=== PATIENT | female | born 1960 | race Caucasian/White ===

== ENCOUNTER → 2016-07-11 | Outpatient (CLI) | payer BC, OTHER ==
--- NOTE | 2016-07-12 14:21 | MM ---
Reason for exam: screening (asymptomatic). Last mammogram was performed 1 year ago. History: Patient is postmenopausal and is nulliparous. Family history of breast cancer in maternal grandmother at age 40 and breast cancer in maternal cousin at age 40. Cyst aspiration. MG Screening Mammo w CAD Bilateral CC and MLO view(s) were taken. Prior study comparison: July 08, 2015, bilateral MG screening mammo w CAD. July 06, 2014, bilateral MG screening mammo w CAD. The breast tissue is heterogeneously dense. This may lower the sensitivity of mammography. No significant changes when compared with prior studies. ASSESSMENT: Benign, BI-RAD 2 RECOMMENDATION: Routine screening mammogram of both breasts in 1 year.
== END | disposition home or self-care (01) ==
LOC: RADMAMWWP 15:11
PROVIDERS: ATTEND Obstetrics & Gynecology
DX: Z12.31 Encounter for screening mammogram for malignant neoplasm of breast (principal)

== ENCOUNTER → 2017-07-22 | Outpatient (CLI) | payer BC, OTHER ==
--- NOTE | 2017-07-22 14:52 | MM ---
Reason for exam: screening (asymptomatic). Last mammogram was performed 1 year ago. History: Patient is postmenopausal and is nulliparous. Family history of breast cancer in maternal grandmother at age 40 and breast cancer in maternal cousin at age 40. Cyst aspiration. Physical Findings: A clinical breast exam by your physician is recommended on an annual basis and results should be correlated with mammographic findings. MG Screening Mammo w CAD Bilateral CC and MLO view(s) were taken. Prior study comparison: July 11, 2016, bilateral MG screening mammo w CAD. July 08, 2015, bilateral MG screening mammo w CAD. The breast tissue is heterogeneously dense. This may lower the sensitivity of mammography. Finding: There is a 12 mm circumscribed oval mass located 5 cm from the nipple in the upper outer quadrant, middle position of the left breast. New finding since July 11, 2016 and July 08, 2015. ASSESSMENT: Incomplete: need additional imaging evaluation, BI-RAD 0 RECOMMENDATION: Special view mammogram and ultrasound of the left breast. [facility] will attempt to contact patient to return for supplemental views and ultrasound.
== END | disposition home or self-care (01) ==
LOC: RADMAMWWP 09:11
PROVIDERS: ATTEND Obstetrics & Gynecology
DX: Z12.31 Encounter for screening mammogram for malignant neoplasm of breast (principal); Z80.3 Family history of malignant neoplasm of breast
CPT/HCPCS: 77067

== ENCOUNTER → 2017-07-26 | Outpatient (CLI) | payer BC, OTHER ==
--- NOTE | 2017-07-29 11:32 | MM ---
Reason for exam: additional evaluation requested from abnormal screening. Last mammogram was performed less than 1 month ago. History: Patient is postmenopausal and is nulliparous. Family history of breast cancer in maternal grandmother at age 40 and breast cancer in maternal cousin at age 40. Cyst aspiration. Taking estrogen beginning at age 55. Taking progesterone beginning at age 56. Physical Findings: Nurse Summary: 2cm nodule in the left breast at 1 o'clock (nurse [place]). MG Work Up Mamm w CAD LT CC and MLO view(s) were taken of the left breast. Prior study comparison: July 22, 2017, bilateral MG screening mammo w CAD. July 11, 2016, bilateral MG screening mammo w CAD. The breast tissue is heterogeneously dense. This may lower the sensitivity of mammography. Nodularity persists. Ultrasound is recommended. These results were verbally communicated with the patient and result sheet given to the patient on 07/26/17. ASSESSMENT: Incomplete: need additional imaging evaluation, BI-RAD 0 RECOMMENDATION: Ultrasound of the left breast. Manage patient on a clinical basis.
--- NOTE | 2017-07-29 11:34 | USB ---
Reason for exam: additional evaluation requested from abnormal screening. History: Patient is postmenopausal and is nulliparous. Family history of breast cancer in maternal grandmother at age 40 and breast cancer in maternal cousin at age 40. Cyst aspiration. Taking estrogen beginning at age 55. Taking progesterone beginning at age 56. US Breast Workup LT Left breast ultrasound includes all four quadrants, the retroareolar region and axilla. Finding demonstrates a 0.6 x 0.4 x 0.4cm cystic lesion at 2 o'clock and a 0.9 x 1.0 x 1.3cm irregular, solid lesion at 2 o'clock for which a biopsy is recommended. These results were verbally communicated with the patient and result sheet given to the patient on 07/26/17. ASSESSMENT: Suspicious, BI-RAD 4 RECOMMENDATION: Ultrasound core biopsy of the left breast. (2 o'clock) Called Dr. Estrada with mammographic findings and has scheduled an appointment for the patient for 08/08/17 at 9:[address] Durbin. PRELIMINARY REPORT CALLED AND FAXED TO DR. DURBIN ON 07/29/17.
== END | disposition home or self-care (01) ==
LOC: RADMAMWWP 14:54
PROVIDERS: ATTEND Obstetrics & Gynecology
DX: R92.8 Other abnormal and inconclusive findings on diagnostic imaging of breast (principal)
CPT/HCPCS: 77065

== ENCOUNTER → 2017-08-16 | Day surgery (SDC) | payer BC, OTHER ==
[2017-08-16 10:58] VITALS: RESP 12
[2017-08-16 12:02] VITALS: BP 124/85; PULSE 73; TEMP 98.6
--- NOTE | 2017-08-16 16:21 | USB ---
EXAMINATION TYPE: US biopsy breast VAD LT DATE OF EXAM: 08/16/2017 CLINICAL HISTORY: R92.2 Abnormal Mammogram. Abnormal ultrasound TECHNIQUE: Ultrasound guided core biopsy of left breast. COMPARISON: Ultrasound 07/26/2017 left breast FINDINGS: The procedure of ultrasound guided core biopsy was explained to the patient. Benefits, alternatives, and risks were discussed. An informed consent was then obtained. The patient was placed in supine positioning for imaging and for the procedure. The overlying skin was prepped and draped in usual sterile fashion. Lidocaine buffered with bicarbonate was used as anesthetic into the skin and subcutaneous tissue up to area of concern in the left breast. A small skin makayla was made with surgical scalpel. Under ultrasound guidance, a 12-gauge vacuum assisted biopsy gun device was used to obtain 7 core samples. Following this, a biopsy clip was left in lesion. The patient tolerated the procedure well without any immediate complication. Discharge instructions were discussed patient. The patient was kept in the radiology department for short stay after the procedure and then discharged home in stable condition. Postprocedure mammogram was obtained. Coil clip appears appropriately placed IMPRESSION: 1. Successful, uncomplicated ultrasound guided core biopsy of area of concern in the left breast. Recommendations: 1. Recommendations are pending pathology results. Pathology Results: Malignant LEFT BREAST NEEDLE CORE BIOPSIES AT 2:00 POSITION: HIGH GRADE CARCINOMA WITH A MARKED MONONUCLEAR INFLAMMATORY INFILTRATE WITH MEDULLARY FEATURES. SEE CANCER CASE SUMMARY. BREAST PROGNOSTIC STUDIES (ER, AK AND HER2/CLARICE) ARE PENDING AND WILL BE REPORTED SEPARATELY. Recommendation Surgical consult of the left breast. PATRICIA
--- NOTE | 2017-08-20 09:01 | MM ---
Reason for exam: additional evaluation requested from abnormal screening. Last mammogram was performed 1 month ago. History: Patient is postmenopausal and is nulliparous. Family history of breast cancer in maternal grandmother at age 40 and breast cancer in maternal cousin at age 40. Cyst aspiration. Taking estrogen beginning at age 55. Taking progesterone beginning at age 56. MG Diagnostic Mammo LT Wo CAD CC and ML view(s) were taken of the left breast. Prior study comparison: July 26, 2017, left breast MG work up mamm w CAD LT. July 22, 2017, bilateral MG screening mammo w CAD. ASSESSMENT: Post procedure mammogram for marker placement RECOMMENDATION: Ultrasound of the left breast in 6 months. PENDING PATHOLOGY RESULTS.
== END | disposition home or self-care (01) ==
LOC: RADUSWWP 10:30
PROVIDERS: ATTEND Surgery
DX: C50.912 Malignant neoplasm of unspecified site of left female breast (principal); Z80.3 Family history of malignant neoplasm of breast; Z79.890 Hormone replacement therapy
CPT/HCPCS: 88305; 77065; 19083; A4648; J2001

== ENCOUNTER → 2017-08-24 | Outpatient (CLI) | payer BC, OTHER ==
--- NOTE | 2017-08-25 16:03 | BMR ---
EXAMINATION TYPE: MR breast BILAT wo/w con DATE OF EXAM: 08/24/2017 COMPARISON: Bilateral breast mammogram July 22, 2017 BI-RADS 0. Left breast diagnostic mammogram July 26, 2017 BI-RADS 0. Left breast ultrasound July 26, 2017 BI-RADS 4 HISTORY: Malignant neoplasm upper-outer quadrant lt breast on ultrasound guided biopsy 08/16/2017 CONTRAST: Multiplanar, multisequence images of the breasts were acquired utilizing 7 mL intravenous Gadavist ga dolinium contrast. TECHNIQUE: A series of fat and water weighted images in the long and short axis views of both breasts are obtained in conjunction with dynamic contrast MRI with subtraction technique. Three-dimensional and additional postprocessing imaging is created on independent workstation and reviewed during offi cial interpretation of this study. FINDINGS: Heterogeneously dense fibroglandular tissue is redemonstrated bilaterally. There is mild sy mmetric background enhancement. There is artifact from biopsy clip in the left breast superiorly. The re are few scattered simple appearing cysts noted throughout both breasts. No internal mammary adenop athy is present bilaterally. Along the central inferior aspect of the biopsy clip artifact there is persistent spiculated 8 x 8 mm lesion roughly 4.9 cm from the nipple at closer to 12 to 1:00 position in the left breast that likel y corresponds to biopsy-proven malignancy. Slightly prominent but subcentimeter left axillary lymph n ode is seen. No multicentric or additional suspicious lesion in the left breast is clearly identified . Within the right breast there is no pathologic enhancing mass identified. Chest wall is intact. No kwan spicious skin thickening is seen. IMPRESSION: MRI redemonstrates biopsy-proven malignancy. No multicentric disease in the left breast o r additional suspicious lesion in the right breast. BI-RADS 2 benign findings right breast BI-RADS 6 biopsy-proven malignancy left breast Recommendation: Appropriate surgical and oncologic management.
== END | disposition home or self-care (01) ==
LOC: RADMRIMAIN 10:05
PROVIDERS: ATTEND Surgery
DX: C50.412 Malignant neoplasm of upper-outer quadrant of left female breast (principal)
CPT/HCPCS: 77059; 0159T; A9581

== ENCOUNTER 2017-08-27 09:47 | Day surgery (SDC) | payer BC, OTHER ==
[2017-08-26 14:56] VITALS: BMI 25.8
[~2017-08-27 09:47] MED LIST: ALPRAZolam 0.5 MG TAB PO PRN; DEXAMETHASONE SOD PHOSPHATE 10 MG/ML 1 ML VIAL IV ONE; HYDROmorphone 0.5 MG/0.5 ML SYRINGE IVP PRN; LACTATED RINGERS 1,000 ML IV SCH; MORPHINE SULFATE 4 MG/ML SYRINGE IV PRN; ONDANSETRON 4 MG/2 ML VIAL IVP ONE; ONDANSETRON 4 MG/2 ML VIAL IVP PRN; Pre Op ABX Message 1 EACH MISC MISCELLANE ONE
[2017-08-27] MEDS ORDERED: LIDOCAINE 1% INJ 10MG/ML (20 ML MDV) SQ ONE (11:12)
[2017-08-27] MEDS ORDERED: SODIUM BICARB 4% 5 ML VIAL (0.48 MEQ/ML) MISCELLANE ONE (11:12)
--- NOTE | 2017-08-27 12:02 | NM ---
EXAMINATION TYPE: NM sentinel node injection DATE OF EXAM: 08/27/2017 COMPARISON: Mammogram 08/16/2017 HISTORY: Left breast cancer TECHNIQUE AND FINDINGS: The procedure of sentinel lymph node injection was explained to the patient. The benefits, alternatives, and risks were discussed. An informed consent was then obtained. Overlying skin is cleaned with sterile alcohol. Following this, 563 uCi Tc99m Tilmanocept was inject ed upper outer aspect of the left nipple. The patient tolerated the procedure well without any immedi ate complication. The patient was kept in the radiology department for short stay after the procedur e and then taken to surgery for surgical procedure what is presumed intraoperative gamma probe will b e used for sentinel lymph node detection. IMPRESSION: Left breast radiotracer injection for sentinel node localization as above.
[2017-08-27] MEDS ORDERED: fentaNYL (PF) 50 MCG/ML 2 ML AMP ONE (12:38)
[2017-08-27] MEDS ORDERED: LIDOCAINE 1% INJ 10MG/ML (20 ML MDV) ONE (12:38)
[2017-08-27] MEDS ORDERED: PROPOFOL 10 MG/ML 20 ML VIAL IV ONE (12:38)
[2017-08-27] MEDS ORDERED: SUCCINYLCHOLINE CHLORIDE 100 MG/5 ML SYR IV ONE (12:38)
--- NOTE | 2017-08-27 12:44 | P.OP ---
Date of Procedure: 08/27/17 Preoperative Diagnosis: Left breast cancer Postoperative Diagnosis: Left breast cancer Procedure(s) Performed: Left breast lumpectomy with needle localisation, Left axillary Sentinal lymph node biopsy Anesthesia: GETA Estimated Blood Loss (ml): 10 Pathology: other (Left breast mass & left axillary lymph node) Condition: stable Disposition: same day Indications for Procedure: Leftbbreast ca Plan - Discharge Summary New Discharge Prescriptions: New HYDROcodone/APAP 5-325MG [[place] 5-325] 1 tab PO Q4HR PRN 3 Days #18 tab PRN Reason: Pain No Action Sertraline [Zoloft] 50 mg PO QAM [place]-3 Fatty Acids/Fish Oil [Fish Oil 1,000 mg Softgel] 1 tab PO DAILY Multivitamins, Thera [Multivitamin] 1 tab PO DAILY Glucosamine/Chondr Montero A Sod [Osteo Bi-Flex Caplet] 1 tab PO DAILY Ferrous Sulfate [Iron (65 MG Elemental)] 325 mg PO DAILY Cholecalciferol [Vitamin D3] 1,000 unit PO Q7D Calcium Carbonate [Calcium] 600 mg PO DAILY Ascorbic Acid [Vitamin C] 500 mg PO DAILY Discharge Medication List Ascorbic Acid [Vitamin C] 500 mg PO DAILY 10/05/15 [History] Calcium Carbonate [Calcium] 600 mg PO DAILY 10/05/15 [History] Cholecalciferol [Vitamin D3] 1,000 unit PO Q7D 10/05/15 [History] Ferrous Sulfate [Iron (65 MG Elemental)] 325 mg PO DAILY 10/05/15 [History] Glucosamine/Chondr Montero A Sod [Osteo Bi-Flex Caplet] 1 tab PO DAILY 10/05/15 [ History] Multivitamins, Thera [Multivitamin] 1 tab PO DAILY 10/05/15 [History] [place]-3 Fatty Acids/Fish Oil [Fish Oil 1,000 mg Softgel] 1 tab PO DAILY [History] Sertraline [Zoloft] 50 mg PO QAM 10/05/15 [History] HYDROcodone/APAP 5-325MG [[place] 5-325] 1 tab PO Q4HR PRN 3 Days #18 tab [Rx] Follow up Appointment(s)/Referral(s): Lonnie Rai MD [STAFF PHYSICIAN] - 1 Week Patient Instructions/Handouts: *Surgery [facility] - ([facility]) Breast Biopsy Instructions Discharge Disposition: HOME SELF-CARE
[2017-08-27] MEDS ORDERED: ceFAZolin 1,000 MG VIAL IVPB ONE (12:48)
[2017-08-27] MEDS ORDERED: BUPIVACAINE (PF) 0.5% 30 ML VIAL SQ ONE ×3 (12:58→13:44)
[2017-08-27 14:16] VITALS: TEMP 98.9
--- NOTE | 2017-08-27 14:26 | P.OP ---
Date of Procedure: 08/27/17 Preoperative Diagnosis: Carcinoma left breast upper outer quadrant Postoperative Diagnosis: Carcinoma left breast after axillary sentinel lymph node negative for metastases Procedure(s) Performed: Left breast lumpectomy with left axillary sentinel lymph node biopsy Anesthesia: TRAVIS Surgeon: Lonnie Rai Estimated Blood Loss (ml): 20 Pathology: other (Left breast mass and left axillary sentinel lymph node) Condition: stable Disposition: same day Indications for Procedure: The patient is a 56-year-old white female who was found to have a suspicious mass in the upper outer quadrant confirmed by ultrasound to be solid. Core biopsy revealed this to be carcinoma invasive with medullary features MRI was negative for any other lesions in either breast. After extensive discussion patient opted for breast preservation and therefore left breast wide excision with left axillary sentinel lymph node was recommended followed by adjuvant treatment depending on the results of the biopsy and sentinel lymph node. Operative Findings: Left breast mass or about 2 cm in diameter operable excised down to the underlying muscle fascia. Left axillary sentinel lymph node negative for metastases on frozen section Description of Procedure: After induction of general endotracheal anesthesia the entire left chest wall and axilla upper arm and breast were prepped with ChloraPrep the. Prostate axilla for the sentinel lymph node. As was identified with the Jerzy counter where local anesthetic was infiltrated and a transverse incision was made and deepened through the subcutaneous tissue. The sentinel lymph node was identified. It was fairly large over 1 cm in diameter and removed with the attachment being divided between clamps and ligated with 4-0 Vicryl suture ligatures. Section revealed no evidence of metastatic disease. Background count was otherwise negative. The attention was then turned to the breast. Transverse incision was made in the upper outer quadrant at the wire insertion site and wide excision of the breast tissue was accomplished down to the underlying muscle fascia and the mass was then usual fashion for the margins. The were thoroughly irrigated. Hemostasis was good. The bed of the lump was marked with the micro-clips. Closure was achieved with interrupted 4-0 Vicryl for the subcutaneous tissues and 4-0 Monocryl subcuticular suture and Steri-Strips for the skin for both incisions. Pressure dressing was applied. All counts were correct. The patient tolerated the procedure well and was transferred to the recovery room in good and stable condition.
[2017-08-27 14:44] VITALS: RESP 18
--- NOTE | 2017-08-27 15:05 | MM ---
EXAMINATION TYPE: MG pre op needle loc LT, MG surgical specimen LT DATE OF EXAM: 08/27/2017 COMPARISON: Prior mammogram 08/16/2017 CLINICAL HISTORY: Breast cancer TECHNIQUE: Needle localization with wire placement and surgical excision of area of concern in the left breast. FINDINGS: The procedure of needle localization with wire placement and than surgical excision was explained to the patient. Benefits, alternatives, and risks were discussed. An informed consent was then obtained. The overlying skin was prepped and draped in usual sterile fashion. Lidocaine buffered with bicarbonate was used as anesthetic into the skin and subcutaneous tissue up to the level of area of concern. A 9 cm needle was used under mammographic guidance. Subsequent 90 degrees mammogram show the needle to be in satisfactory position relative to the targeted area. At this point, wire was placed and the needle was withdrawn. The wire was fixed to patient's skin. Images were marked for surgeon. The patient tolerated the procedure well without any immediate complication. The patient was kept in the radiology department for short stay after the procedure and then taken to surgery for surgical excision. Mass and biopsy clip and wire are identified in specimen mammogram. The patient was kept in hospital for short stay after the procedure and then discharged home in stable condition. IMPRESSION: Successful, uncomplicated needle localization with wire placement and surgical excision of breast mass with biopsy clip in the left breast, full pathology results to follow. Pathology Results: Malignant A. SENTINEL LYMPH NODE #1, BIOPSY: Lymph node negative for metastasis. CK7 and SHAI immunoperoxidase stains are confirmatory (controls appropriate). B. 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 Invasive carcinoma closely approximates the medial margin (much less than 1mm from the medial margin). See Surgical Pathology Cancer Case Summary and Comment. Recommendation Surgical consult of the left breast. [facility]
[2017-08-27 15:10] VITALS: BP 142/87; PULSE 64
== END 2017-08-27 15:42 | disposition home or self-care (01) ==
LOC: OR 09:47
PROVIDERS: ATTEND Surgery
DX: C50.412 Malignant neoplasm of upper-outer quadrant of left female breast (principal); Z80.3 Family history of malignant neoplasm of breast; F39 Unspecified mood [affective] disorder; Z78.0 Asymptomatic menopausal state; Z79.890 Hormone replacement therapy; Z79.899 Other long term (current) drug therapy; Z87.891 Personal history of nicotine dependence
CPT/HCPCS: 88342; 88331; 88307; 88341; 76098; 19281; 38792; 19301; 38525; A9520; J1100; J2405; J0690; J2001; J3010; J0330; J2704

== ENCOUNTER → 2017-10-03 | Outpatient (CLI) | payer BC, OTHER ==
--- NOTE | 2017-10-03 18:45 | ECHOF ---
Referral Reason:C50.412 Breast CA, Z01.818 Chemo MEASUREMENTS -------- HEIGHT: 167.6 cm WEIGHT: 72.1 kg BP: IVSd: 1.3 cm (0.6 - 1.1) LVIDd: 3.9 cm (3.9 - 5.3) LVPWd: 1.2 cm (0.6 - 1.1) IVSs: 1.5 cm LVIDs: 2.9 cm LVPWs: 1.7 cm RVIDd: 3.5 cm (< 3.3) LAESV Index (A-L): 28.63 ml/m Ao Diam: 2.7 cm (2.0 - 3.7) LA Diam: 3.5 cm (2.7 - 3.8) AV Cusp: 1.8 cm (1.5 - 2.6) EPSS: 0.6 cm MV E Rafa: 0.77 m/s MV DecT: 260 ms MV A Rafa: 0.95 m/s MV E/A Ratio: 0.81 RAP: 5.00 mmHg RVSP: 22.97 mmHg MV EF SLOPE: 88.40 mm/s (70 - 150) MV EXCURSION: 1.59 cm (> 18.000) FINDINGS -------- Sinus rhythm. This was a technically good study. The left ventricular size is normal. There is mild concentric left ventricular hypertrophy. Overa ll left ventricular systolic function is normal with, an EF between 55 - 60 %. The right ventricle is mildly enlarged. Normal LA size by volume 22+/-6 ml/m2. RA appears enlarged. The aortic valve is trileaflet, and appears structurally normal. No aortic stenosis or regurgitation. The mitral valve leaflets are mildly thickened. Mild mitral regurgitation is present. Mild tricuspid regurgitation present. Right ventricular systolic pressure is normal at < 35 mmHg. There is no evidence of pulmonary hypertension. Trace/mild (physiologic) pulmonic regurgitation. The aortic root size is normal. Normal inferior vena cava with normal inspiratory collapse consistent with estimated right atrial pre ssure of 5 mmHg. There is no pericardial effusion. CONCLUSIONS -------- 1. Sinus rhythm. 2. This was a technically good study. 3. The left ventricular size is normal. 4. There is mild concentric left ventricular hypertrophy. 5. Overall left ventricular systolic function is normal with, an EF between 55 - 60 %. 6. The right ventricle is mildly enlarged. 7. Normal LA size by volume 22+/-6 ml/m2. 8. RA appears enlarged. 9. The aortic valve is trileaflet, and appears structurally normal. No aortic stenosis or regurgitati on. 10. The mitral valve leaflets are mildly thickened. 11. Mild mitral regurgitation is present. 12. Mild tricuspid regurgitation present. 13. Right ventricular systolic pressure is normal at < 35 mmHg. 14. There is no evidence of pulmonary hypertension. 15. Trace/mild (physiologic) pulmonic regurgitation. 16. The aortic root size is normal. 17. There is no pericardial effusion. PAPER SUPERVISOR: Jorge Lilly RDCS
== END | disposition home or self-care (01) ==
LOC: RADECHMAIN 13:56
PROVIDERS: ATTEND Internal Medicine Hematology & Oncology
DX: Z01.818 Encounter for other preprocedural examination (principal); I08.1 Rheumatic disorders of both mitral and tricuspid valves; C50.412 Malignant neoplasm of upper-outer quadrant of left female breast
CPT/HCPCS: 93306

== ENCOUNTER → 2017-12-27 | Outpatient (CLI) | payer BC, OTHER ==
--- NOTE | 2017-12-27 13:04 | ECHOF ---
Referral Reason:C50.412 Breast CA / Z01.818 Chemo exposure MEASUREMENTS -------- HEIGHT: 167.6 cm WEIGHT: 76.7 kg BP: IVSd: 1.1 cm (0.6 - 1.1) LVIDd: 4.4 cm (3.9 - 5.3) LVPWd: 1.1 cm (0.6 - 1.1) IVSs: 1.8 cm LVIDs: 2.0 cm LVPWs: 1.6 cm LAESV Index (A-L): 33.08 ml/m Ao Diam: 2.7 cm (2.0 - 3.7) AV Cusp: 2.0 cm (1.5 - 2.6) LA Diam: 3.7 cm (2.7 - 3.8) EPSS: 0.3 cm MV E Rafa: 0.95 m/s MV DecT: 203 ms MV A Rafa: 1.05 m/s MV E/A Ratio: 0.90 RAP: 5.00 mmHg RVSP: 27.18 mmHg MV EF SLOPE: 100.86 mm/s (70 - 150) MV EXCURSION: 1.74 cm (> 18.000) FINDINGS -------- Sinus rhythm. This was a technically good study. The left ventricular size is normal. Left ventricular wall thickness is normal. Overall left vent ricular systolic function is normal with, an EF between 55 - 60 %. The right ventricle is normal in size and function. LA is midly dilated 29-33ml/m2. The right atrium is normal in size. The aortic valve is trileaflet, and appears structurally normal. No aortic stenosis or regurgitation. The mitral valve leaflets are mildly thickened. [id number] mitral regurgitation is present. Mild tricuspid regurgitation present. There is no evidence of pulmonary hypertension. The right v entricular systolic pressure, as measured by Doppler, is 27.18mmHg. There is no pulmonic regurgitation present. The aortic root, ascending aorta and aortic arch are normal. Normal inferior vena cava with normal inspiratory collapse consistent with estimated right atrial pre ssure of 5 mmHg. There is no pericardial effusion. CONCLUSIONS -------- 1. Sinus rhythm. 2. This was a technically good study. 3. The left ventricular size is normal. 4. Left ventricular wall thickness is normal. 5. Overall left ventricular systolic function is normal with, an EF between 55 - 60 %. 6. LA is midly dilated 29-33ml/m2. 7. The aortic valve is trileaflet, and appears structurally normal. No aortic stenosis or regurgitati on. 8. The mitral valve leaflets are mildly thickened. 9. [id number] mitral regurgitation is present. 10. Mild tricuspid regurgitation present. 11. There is no evidence of pulmonary hypertension. 12. There is no pulmonic regurgitation present. 13. The aortic root, ascending aorta and aortic arch are normal. 14. Normal inferior vena cava with normal inspiratory collapse consistent with estimated right atrial pressure of 5 mmHg. 15. There is no pericardial effusion. STATEMENT CLERKS SUPERVISOR: ARNAV Epstein
== END ==
LOC: RADECHMAIN 11:28
PROVIDERS: ATTEND Internal Medicine Hematology & Oncology
DX: Z01.818 Encounter for other preprocedural examination (principal); C50.412 Malignant neoplasm of upper-outer quadrant of left female breast; I08.1 Rheumatic disorders of both mitral and tricuspid valves
CPT/HCPCS: 93306

== ENCOUNTER → 2018-04-25 | Outpatient (CLI) | payer BC, OTHER ==
--- NOTE | 2018-04-26 16:46 | ECHOF ---
Referral Reason:C50.412 BREAST CA Z01.818 MEASUREMENTS -------- HEIGHT: 165.1 cm WEIGHT: 78.9 kg BP: RVIDd: 3.3 cm (< 3.3) IVSd: 1.0 cm (0.6 - 1.1) LVIDd: 4.0 cm (3.9 - 5.3) LVPWd: 1.3 cm (0.6 - 1.1) IVSs: 1.8 cm LVIDs: 2.0 cm LVPWs: 1.6 cm Ao Diam: 2.3 cm (2.0 - 3.7) AV Cusp: 2.0 cm (1.5 - 2.6) LA Diam: 3.3 cm (2.7 - 3.8) MV EXCURSION: 19.783 mm (> 18.000) MV EF SLOPE: 127 mm/s (70 - 150) EPSS: 0.5 cm MV E Rafa: 0.72 m/s MV DecT: 269 ms MV A Rafa: 0.77 m/s MV E/A Ratio: 0.94 RAP: 5.00 mmHg RVSP: 27.53 mmHg FINDINGS -------- Sinus rhythm. This was a technically good study. The left ventricular size is normal. There is borderline concentric left ventricular hypertrophy. Overall left ventricular systolic function is normal with, an EF between 55 - 60 %. The right ventricle is normal in size. The left atrium is normal in size. The right atrium is normal in size and function. The aortic valve is trileaflet, and appears structurally normal. No aortic stenosis or regurgitation. The mitral valve leaflets are mildly thickened. Mild mitral regurgitation is present. Mild tricuspid regurgitation present. There is no evidence of pulmonary hypertension. The right v entricular systolic pressure, as measured by Doppler, is 27.53mmHg. There is no pulmonic regurgitation present. The aortic root size is normal. There is no pericardial effusion. CONCLUSIONS -------- 1. Sinus rhythm. 2. This was a technically good study. 3. The left ventricular size is normal. 4. There is borderline concentric left ventricular hypertrophy. 5. Overall left ventricular systolic function is normal with, an EF between 55 - 60 %. 6. The left atrium is normal in size. 7. The aortic valve is trileaflet, and appears structurally normal. No aortic stenosis or regurgitati on. 8. The mitral valve leaflets are mildly thickened. 9. Mild mitral regurgitation is present. 10. Mild tricuspid regurgitation present. 11. There is no evidence of pulmonary hypertension. 12. There is no pulmonic regurgitation present. 13. The aortic root size is normal. 14. There is no pericardial effusion. GLASS PULVERIZER EQUIPMENT OPERATOR: Chaparrita Meyers RDCS
--- NOTE | 2018-04-28 12:58 | BD ---
EXAMINATION TYPE: Axial Bone Density DATE OF EXAM: 04/25/2018 COMPARISON: 03/27/2011 CLINICAL HISTORY: History of breast cancer. Height: 65 IN Weight: 173 LBS RISK FACTORS HISTORY OF: Family History of Osteoporosis: YES MOTHER AND (M) GRANDMOTHER Active: YES Diet low in dairy products/other sources of calcium: YES Postmenopausal woman: AGE 50 Take estrogen and/or progesterone medications: NOT NOW How long: AUGUST 2016 - AUGUST 2017 MEDICATIONS: Additional Medications: CALCIUM, VIT D, ZOLOFT, LETROZOLE, ESTRADIOL VAG CREAM 2 TIMES PER WEEK, WOME N'S VIT, VIT C, VIT B12, FISH OIL, IRON, APPLE PECTIN, OSTEO BI FLEX, GLUCO/ CHOND, Additional History: BREAST CANCER WITH CHEMO AND RADIATION 2017 EXAM MEASUREMENTS: Bone mineral densitometry was performed using the [employer] System. Bone mineral density as measured about the Lumbar spine is: ----- L1-L4(G/cm2): 1.212 T Score Values are as follows: ----- L2: -0.2 ----- L3: 1.1 ----- L4: 0.3 ----- L1-L4: 0.3 Bone mineral density has: Decreased -4.4% since study of: 03/27/2011 Bone mineral density about the R hip (g/cm2): 0.980 Bone mineral density about the L hip (g/cm2): 0.899 T Score values are as follows: -----R Neck: -0.4 -----L Neck: -1.0 -----R Total: -0.4 -----L Total: -0.7 Bone mineral density has: Decreased -3.4% since study of: 03/27/2011 IMPRESSION: Normal (Values between +1 and -1 indicate normal bone mass) range on current study. Consider repeati ng this study in 5 years or sooner if there is some new clinical indication. NOTE: T-SCORE=SD OF THE YOUNG ADULT MEAN.
== END | disposition home or self-care (01) ==
LOC: RADBDWWP 14:09
PROVIDERS: ATTEND Internal Medicine Hematology & Oncology
DX: Z01.818 Encounter for other preprocedural examination (principal); C50.412 Malignant neoplasm of upper-outer quadrant of left female breast; I08.1 Rheumatic disorders of both mitral and tricuspid valves; N95.1 Menopausal and female climacteric states; Z79.890 Hormone replacement therapy
CPT/HCPCS: 77080; 93306

== ENCOUNTER → 2018-07-25 | Outpatient (CLI) | payer BC, OTHER ==
--- NOTE | 2018-07-25 13:07 | ECHOF ---
Referral Reason:C50.Chris Z01.818 chemo exposure MEASUREMENTS -------- HEIGHT: 170.2 cm WEIGHT: 74.4 kg BP: IVSd: 1.1 cm (0.6 - 1.1) LVIDd: 4.5 cm (3.9 - 5.3) LVPWd: 1.3 cm (0.6 - 1.1) IVSs: 1.5 cm LVIDs: 3.0 cm LVPWs: 1.6 cm LA Diam: 4.1 cm (2.7 - 3.8) LAESV Index (A-L): 28.65 ml/m Ao Diam: 2.7 cm (2.0 - 3.7) AV Cusp: 2.0 cm (1.5 - 2.6) LA Diam: 4.5 cm (2.7 - 3.8) MV EXCURSION: 17.701 mm (> 18.000) MV EF SLOPE: 88 mm/s (70 - 150) EPSS: 0.6 cm MV E Rafa: 0.63 m/s MV DecT: 171 ms MV A Rafa: 0.66 m/s MV E/A Ratio: 0.96 RAP: 5.00 mmHg RVSP: 23.47 mmHg FINDINGS -------- Sinus rhythm. This was a technically good study. LV size, wall thickness and systolic function are normal, with an EF greater than 55%. The left royce tricular size is normal. The right ventricle is normal in size. The left atrial size is normal. Normal LA size by volume 22+/-6 ml/m2. The right atrial size is normal. Interatrial and interventricular septum intact. There is mild aortic valve sclerosis. There is no evidence of aortic regurgitation. Mild mitral annular calcification present. Mild mitral regurgitation is present. Mild tricuspid regurgitation present. There is no evidence of pulmonary hypertension. The right v entricular systolic pressure, as measured by Doppler, is 23.47mmHg. There is no pulmonic regurgitation present. The aortic root size is normal. Normal inferior vena cava with normal inspiratory collapse consistent with estimated right atrial pre ssure of 5 mmHg. There is no pericardial effusion. CONCLUSIONS -------- 1. LV size, wall thickness and systolic function are normal, with an EF greater than 55%. 2. The left ventricular size is normal. 3. The right ventricle is normal in size. 4. The left atrial size is normal. 5. Normal LA size by volume 22+/-6 ml/m2. 6. The right atrial size is normal. 7. Interatrial and interventricular septum intact. 8. There is mild aortic valve sclerosis. 9. Mild mitral annular calcification present. 10. Mild mitral regurgitation is present. 11. There is no evidence of pulmonary hypertension. 12. The right ventricular systolic pressure, as measured by Doppler, is 23.47mmHg. 13. There is no pulmonic regurgitation present. 14. The aortic root size is normal. 15. Normal inferior vena cava with normal inspiratory collapse consistent with estimated right atrial pressure of 5 mmHg. 16. There is no pericardial effusion. EMERGENCY MEDICAL TECHNICIAN: Lavern Mcintyre RDCS
== END | disposition home or self-care (01) ==
LOC: RADECHMAIN 08:29
PROVIDERS: ATTEND Internal Medicine Hematology & Oncology
DX: I35.8 Other nonrheumatic aortic valve disorders (principal); C50.412 Malignant neoplasm of upper-outer quadrant of left female breast
CPT/HCPCS: 93306

== ENCOUNTER → 2018-08-25 | Outpatient (CLI) | payer BC, OTHER ==
--- NOTE | 2018-08-26 11:37 | MM ---
Reason for exam: additional evaluation requested from prior study. Last mammogram was performed 1 year ago. History: Patient is postmenopausal, has history of breast cancer at age 56, and is nulliparous. Family history of breast cancer in maternal grandmother at age 40 and breast cancer in maternal cousin at age 40. Malignant MG pre op needle loc LT of the left breast, August 27, 2017. Malignant US biopsy breast VAD LT of the left breast, August 16, 2017. Cyst aspiration. Lumpectomy of the left breast. Chemotherapy. Radiation therapy. Taking estrogen beginning at age 55. Taking progesterone beginning at age 56. Taking antineoplastic beginning at age 56. Physical Findings: Nurse did not find any significant physical abnormalities on exam. MG Diagnostic Mammo w CAD ABBY Bilateral CC and MLO view(s) were taken. LM and spot compression CC view(s) were taken of the left breast. Prior study comparison: August 16, 2017, left breast MG diagnostic mammo LT wo CAD. July 26, 2017, left breast MG work up mamm w CAD LT. The breast tissue is heterogeneously dense. This may lower the sensitivity of mammography. Post surgical change on the left. No suspicious abnormality on the left. Left middle depth asymmetry lateral breast improves on spot compression, precautionary upper outer quadrant ultrasound will be performed. Mediport noted. These results were verbally communicated with the patient and result sheet given to the patient on 08/25/18. ASSESSMENT: Incomplete: need additional imaging evaluation, BI-RAD 0 RECOMMENDATION: Ultrasound of the left breast. (upper outer quadrant, attention 3cm from the nipple)
--- NOTE | 2018-08-26 11:38 | USB ---
Reason for exam: additional evaluation requested from abnormal screening. History: Patient is postmenopausal, has history of breast cancer at age 56, and is nulliparous. Family history of breast cancer in maternal grandmother at age 40 and breast cancer in maternal cousin at age 40. Malignant MG pre op needle loc LT of the left breast, August 27, 2017. Malignant US biopsy breast VAD LT of the left breast, August 16, 2017. Cyst aspiration. Lumpectomy of the left breast. Chemotherapy. Radiation therapy. Taking estrogen beginning at age 55. Taking progesterone beginning at age 56. Taking antineoplastic beginning at age 56. US Breast Limited LT Left limited breast ultrasound including focal area of concern, retroareolar and axilla demonstrates a 2.1 x 0.9 x 2.4cm oval, mixed lesion at 2 o'clock correlates with mammographic finding. These results were verbally communicated with the patient and result sheet given to the patient on 08/25/18. ASSESSMENT: Suspicious, BI-RAD 4 RECOMMENDATION: Ultrasound core biopsy of the left breast. Called with mammographic findings and has scheduled an appointment for the patient for 08/27/18 at 10:[address] Brambila. PRELIMINARY REPORT CALLED AND FAXED TO DR. BRAMBILA ON 08/26/18.
== END | disposition home or self-care (01) ==
LOC: RADMAMWWP 08:48
PROVIDERS: ATTEND Radiology Diagnostic Radiology
DX: R92.8 Other abnormal and inconclusive findings on diagnostic imaging of breast (principal)
CPT/HCPCS: 77066

== ENCOUNTER → 2018-10-28 | Outpatient (CLI) | payer BC, OTHER ==
--- NOTE | 2018-10-29 09:54 | ECHOF ---
Referral Reason:C50.412 Breast cancer,Z01.818 Chemo MEASUREMENTS -------- HEIGHT: 167.6 cm WEIGHT: 73.0 kg BP: RVIDd: 3.5 cm (< 3.3) IVSd: 1.1 cm (0.6 - 1.1) LVIDd: 4.3 cm (3.9 - 5.3) LVPWd: 1.3 cm (0.6 - 1.1) IVSs: 1.3 cm LVIDs: 2.9 cm LVPWs: 1.8 cm LAESV Index (A-L): 37.74 ml/m Ao Diam: 2.7 cm (2.0 - 3.7) AV Cusp: 1.7 cm (1.5 - 2.6) LA Diam: 3.5 cm (2.7 - 3.8) EPSS: 0.6 cm MV E Rafa: 0.63 m/s MV DecT: 217 ms MV A Rafa: 0.98 m/s MV E/A Ratio: 0.65 RAP: 5.00 mmHg RVSP: 27.67 mmHg MV EF SLOPE: 86.20 mm/s (70 - 150) MV EXCURSION: 1.15 cm (> 18.000) FINDINGS -------- Sinus rhythm. This was a technically adequate study. The left ventricular size is normal. There is mild concentric left ventricular hypertrophy. Overa ll left ventricular systolic function is normal with, an EF between 55 - 60 %. The diastolic fillin g pattern is normal for the age of the patient. The right ventricle is mildly enlarged. Left atrium is moderately dilated by volume. The right atrial size is normal. Interatrial and interventricular septum intact. The aortic valve is trileaflet and appears structurally normal. There is no evidence of aortic regu rgitation. There is no evidence of aortic stenosis. Cnhz-kc-ytzijerw mitral regurgitation is present. Mild tricuspid regurgitation present. There is no evidence of pulmonary hypertension. The right v entricular systolic pressure, as measured by Doppler, is 27.67mmHg. Trace/mild (physiologic) pulmonic regurgitation. The aortic root size is normal. The inferior vena cava was not well visualized. There is no pericardial effusion. CONCLUSIONS -------- 1. Sinus rhythm. 2. This was a technically adequate study. 3. The left ventricular size is normal. 4. There is mild concentric left ventricular hypertrophy. 5. Overall left ventricular systolic function is normal with, an EF between 55 - 60 %. 6. The diastolic filling pattern is normal for the age of the patient. 7. The right ventricle is mildly enlarged. 8. Left atrium is moderately dilated by volume. 9. The right atrial size is normal. 10. Interatrial and interventricular septum intact. 11. The aortic valve is trileaflet and appears structurally normal. 12. There is no evidence of aortic regurgitation. 13. There is no evidence of aortic stenosis. 14. Nkjo-gn-dhwpziak mitral regurgitation is present. 15. Mild tricuspid regurgitation present. 16. There is no evidence of pulmonary hypertension. 17. The right ventricular systolic pressure, as measured by Doppler, is 27.67mmHg. 18. Trace/mild (physiologic) pulmonic regurgitation. 19. The aortic root size is normal. 20. The inferior vena cava was not well visualized. 21. There is no pericardial effusion. STAFF [employer] OFFICER: Jacquelyn An RDCS
== END | disposition home or self-care (01) ==
LOC: RADECHMAIN 08:29
PROVIDERS: ATTEND Internal Medicine Hematology & Oncology
DX: Z01.818 Encounter for other preprocedural examination (principal); I08.1 Rheumatic disorders of both mitral and tricuspid valves; C50.412 Malignant neoplasm of upper-outer quadrant of left female breast
CPT/HCPCS: 93306

== ENCOUNTER → 2019-02-04 | Day surgery (SDC) | payer BC, OTHER ==
[2019-02-02 12:07] VITALS: BMI 26.6
[~2019-02-04] MED LIST changes: -ALPRAZolam 0.5 MG TAB PO PRN; +ATROPINE OPHTH SOLN 1% 5ML BTL RIGHT EYE ONE; +BALANCED SALT IRRIG SOLN COMB2 15 ML IRRIG.SOLN IRRIGATION ONE; -DEXAMETHASONE SOD PHOSPHATE 10 MG/ML 1 ML VIAL IV ONE; +EPINEPHrine (PF) 0.3 ML in BALANCED SALT IRRIG SOLN COMB2 500 ML IRRIGATION ONE; +HYALURONATE SODIUM INTRAOCULAR 1 EACH SYRINGE (12MG/ML) INTRAOCULA ONE; -HYDROmorphone 0.5 MG/0.5 ML SYRINGE IVP PRN; +LIDOCAINE 1% (PF) 10MG/ML VIAL MISCELLANE ONE; +LIDOCAINE 1% 20 ML VIAL (10MG/ML) FOR IV START INTRADERMA PRN; +MIDAZOLAM 2 MG/2 ML VIAL ONE; -MORPHINE SULFATE 4 MG/ML SYRINGE IV PRN; +MOXIFLOXACIN HCL 0.5% DROPS 3 ML BTL OP ONE; -ONDANSETRON 4 MG/2 ML VIAL IVP ONE; -ONDANSETRON 4 MG/2 ML VIAL IVP PRN; -Pre Op ABX Message 1 EACH MISC MISCELLANE ONE; +TETRACAINE 0.5% OPHTH (PF) DROPS 4 ML BTL OP NR; +TIMOLOL 0.5% OPHTH DROPS 5 ML BTL OP ONE; +fentaNYL (PF) 50 MCG/ML 2 ML AMP ONE
[2019-02-04] MEDS: CYCLOPENTOLATE 1% OPHTH SOLN 2 ML BTL OP NR ×3 (07:42→07:54)
[2019-02-04 07:44] VITALS: TEMP 97.5
[2019-02-04] MEDS: PHENYLEPHRINE 2.5% OPHTH DRP 2ML OP NR ×3 (07:45→07:57)
--- NOTE | 2019-02-04 09:26 | P.OP ---
Date of Procedure: 02/04/19 Preoperative Diagnosis: presbyopia Postoperative Diagnosis: same Procedure(s) Performed: PreLex ( presbyopic lens exchange Implants: BL1UT 22.50 x 2.75 Anesthesia: MAC Surgeon: Orlando Larsen Estimated Blood Loss (ml): 0 Pathology: none sent Condition: stable Disposition: same day Indications for Procedure: refractive error Operative Findings: No complications
[2019-02-04 09:30] VITALS: RESP 17
[2019-02-04 09:45] VITALS: BP 110/60; PULSE 70
--- NOTE | 2019-02-04 23:55 | OP ---
OPERATIVE REPORT DATE OF SURGERY: 02/04/2019. PROCEDURE: Presbyopic lens exchange of the right eye. PREOPERATIVE DIAGNOSIS: Presbyopia. POSTOPERATIVE DIAGNOSIS: Presbyopia. SURGEON: Dr. Orlando Larsen. ANESTHESIA: Topical. ESTIMATED BLOOD LOSS: None. SPECIMEN TAKEN: None. NARRATIVE: After obtaining the appropriate consent, the patient was brought to the operating room. There she was placed under cardiac monitoring, prepped and draped in the usual sterile manner. She was approached from her right temporal side. Using previously acquired corneal topography information, the axis of 98 degrees was identified and marked on the patient's eye. At the center of the cornea, a 5.5 mm Gerald ring inked in gentian krishna was also placed on the eye. At the 11 o'clock position an MVR blade was used to create a paracentesis port. Through this opening, 1% xylocaine MPF 50:50 mix of balanced-salt solution was injected into the anterior chamber. This was followed by stabilization of the anterior chamber with Amvisc. At the 9 o'clock position, a 2.5 mm keratome was used to create a self-sealing corneal flap incision in a Langerman's fashion. Through this opening a cystotome was used to begin a continuous tear capsulorrhexis which was completed using the Utrata forceps. Care was taken to ensure the size of the rhexis was at least the size of the 5.5 mm saúl on the patient's cornea. Hydrodissection and hydrodelineation of the lens was accomplished with balanced-salt solution. Phacoemulsification lens utilizing phaco chop was accomplished in 9.97 seconds at 12% power. Additional xylocaine MPF was instilled into the anterior chamber. This was followed by removal of the remaining cortex under irrigation and aspiration along with careful polishing of the posterior capsule in the capsule vacuum mode. Additional Viscoat was placed into the patient's eye, and using Chapo- Amy capsule polishers, the underside of the anterior capsule and as far to the equator as possible were scuffed, removing any remaining cortical material from those areas. The temporal incision was enlarged slightly with the keratome, and a [employer] Trulign Toric model BL1UT 22.5-diopter by 2.75 cylinder intraocular lens was then placed into the capsular bag without difficulty. The lens was rotated at least 270 degrees once ensuring that it was properly placed within the capsular bag, and the remaining viscoelastic was then removed from within and around the intraocular lens as well as the anterior chamber. One final step was to align the index mari of the intraocular lens with those placed on the patient's cornea earlier in the surgery. The eye was brought to normal intraocular pressure through the paracentesis port, and to ensure watertight integrity ReSure was used on both the paracentesis as well as the temporal incision. The patient then received 2 drops of 0.5% timolol followed by moxifloxacin as well as 1% atropine. She was then lightly patched and shielded in the usual manner. There were no complications from the procedure. She tolerated the procedure well and was returned to Outpatient Recovery in good condition. NYDIA / DAVE: [id number] / MTDKinga
== END | disposition home or self-care (01) ==
LOC: OR 07:21
PROVIDERS: ATTEND Ophthalmology
DX: H52.4 Presbyopia (principal); H04.123 Dry eye syndrome of bilateral lacrimal glands; H00.026 Hordeolum internum left eye, unspecified eyelid; H26.9 Unspecified cataract; H52.13 Myopia, bilateral; C50.912 Malignant neoplasm of unspecified site of left female breast; Z92.21 Personal history of antineoplastic chemotherapy; Z87.891 Personal history of nicotine dependence; Z79.811 Long term (current) use of aromatase inhibitors; Z79.3 Long term (current) use of hormonal contraceptives; Z79.899 Other long term (current) drug therapy
CPT/HCPCS: 66986; V2787; C1780; J2250; J0171; J3010; J2001

== ENCOUNTER → 2019-03-04 | Day surgery (SDC) | payer BC, OTHER ==
[2019-03-02 16:25] VITALS: BMI 26.6
[~2019-03-04] MED LIST changes: +ATROPINE OPHTH SOLN 1% 5ML BTL OPHTHALMIC ONE; -ATROPINE OPHTH SOLN 1% 5ML BTL RIGHT EYE ONE; -LIDOCAINE 1% (PF) 10MG/ML VIAL MISCELLANE ONE; +LIDOCAINE 1% (PF) 10MG/ML VIAL SQ ONE; -TETRACAINE 0.5% OPHTH (PF) DROPS 4 ML BTL OP NR; +TETRACAINE 0.5% OPHTH (PF) DROPS 4 ML BTL OP SCH
[2019-03-04 08:46] VITALS: RESP 16; TEMP 97.9
[2019-03-04] MEDS: CYCLOPENTOLATE 1% OPHTH SOLN 2 ML BTL OP SCH ×3 (08:52→09:05)
[2019-03-04] MEDS: PHENYLEPHRINE 2.5% OPHTH DRP 2ML OP SCH ×3 (08:56→09:08)
--- NOTE | 2019-03-04 10:27 | P.OP ---
Date of Procedure: 03/04/19 Preoperative Diagnosis: Presbyopia Postoperative Diagnosis: same Procedure(s) Performed: PIOL, OS Implants: BL1UT 22.00 x 2.00 Anesthesia: MAC Surgeon: Orlando Larsen Pathology: none sent Condition: stable Indications for Procedure: reading problems Operative Findings: No complications
[2019-03-04 10:53] VITALS: BP 111/74; PULSE 57
--- NOTE | 2019-03-04 20:15 | OP ---
OPERATIVE REPORT DATE OF SURGERY: 03/04/2019. PROCEDURE: PRELEX presbyopic lens exchange of the left eye. PREOPERATIVE DIAGNOSES: Myopia, astigmatism and presbyopia. POSTOPERATIVE DIAGNOSES: Myopia, astigmatism, zonulysis and presbyopia. SURGEON: Dr. Orlando Larsen. ANESTHESIA: Topical. ESTIMATED BLOOD LOSS: None. SPECIMEN TAKEN: None. NARRATIVE: After signing the consent, the patient was brought to the operating room. There she was asked to sit upright, and the axes of 0 and 180 degrees were identified and marked with a gentian krishna marker. She was then placed in the proper supine position under cardiac monitoring, then prepped and draped in the usual sterile manner. She was approached from her left temporal side using previously acquired corneal topography information. An axis of 102 degrees was identified and marked with a corneal axis marker. A 5.5 mm Gerald ring inked in gentian krishna was also placed centrally over the patient's cornea. At the 5 o'clock position an MVR blade was used to create a paracentesis port. Through this opening 1% Xylocaine MPF 50:50 mix with balanced salt solution was injected into the anterior chamber. This was followed by stabilization of the anterior chamber with Amvisc. At the 3 o'clock position a 2.75 mm fannie keratome was used to create a self-sealing corneal flap incision in a Langerman's fashion. Through this opening, a cystotome was introduced to begin a continuous tear capsulorrhexis which was completed with the Utrata forceps. Care was taken to ensure that the size of the rhexis was at least the size of the saúl on the patient's anterior cornea. Hydrodissection and hydrodelineation of the lens was accomplished with balanced salt solution. Phacoemulsification of the lens was accomplished in 1.2 seconds at 4% power. Additional Xylocaine MPF was instilled into the anterior chamber. This was followed by removal of the remaining cortex under irrigation aspiration along with careful polishing of the posterior capsule in the capsule vacuum mode. Additional polishing was accomplished with the Amy and Chapo capsule polishers. During the course of this procedure, it was identified that between the clock hours of 9 and 11 o'clock there appeared to be some flaccidity in the capsular bag. Therefore additional viscoelastic was then placed in the patient's eye and an Opthtec capsular tension ring of 13 mm was inserted into the equator of the capsular bag without difficulty. The external incision was then enlarged slightly with the fannie keratome, and a Bausch [employer] Lomb Trulign model BL1UT 22.0 spherical equivalent 2.00 cylinder was placed into the patient's eye without difficulty. The remaining viscoelastic was removed from in and around the intraocular lens. This was followed by final alignment of the intraocular lens with both Sinskey as well as irrigation aspiration instrument to align with the previously placed astigmatism mari at 102 degrees. The eye was then brought to normal intraocular pressure through the paracentesis port. The wounds were dried with a Weck- Sandra sponge and ReSure was used to seal both the temporal as well as the paracentesis wounds. She then received two drops of 0.5% Timolol followed by two drops of 1% atropine as well as two drops of moxifloxacin. She was then lightly patched and shielded in the usual manner. There were no complications during the course of the procedure. She tolerated the procedure well and was returned to Recovery in good condition. MMRACHAEL / DAVE: [id number] / PATRICIA
== END ==
LOC: OR 07:56
PROVIDERS: ATTEND Ophthalmology
DX: H52.4 Presbyopia (principal); H52.13 Myopia, bilateral; H00.026 Hordeolum internum left eye, unspecified eyelid; H04.123 Dry eye syndrome of bilateral lacrimal glands; H52.209 Unspecified astigmatism, unspecified eye; Z96.1 Presence of intraocular lens; F32.9 Major depressive disorder, single episode, unspecified; C50.912 Malignant neoplasm of unspecified site of left female breast; Z92.21 Personal history of antineoplastic chemotherapy; Z79.3 Long term (current) use of hormonal contraceptives; Z79.899 Other long term (current) drug therapy; Z87.891 Personal history of nicotine dependence; Z97.3 Presence of spectacles and contact lenses; Z80.9 Family history of malignant neoplasm, unspecified; Z83.52 Family history of ear disorders; Z92.3 Personal history of irradiation
CPT/HCPCS: 66986; L8610; V2632; V2788; J2250; J0171; J3010; J2001

== ENCOUNTER → 2020-05-11 | Outpatient (CLI) | payer BC, OTHER ==
--- NOTE | 2020-05-11 15:46 | BD ---
EXAMINATION TYPE: Axial Bone Density DATE OF EXAM: 05/11/2020 COMPARISON: 04/25/2018 CLINICAL HISTORY: Height: 64.5 IN Weight: 168 LBS RISK FACTORS HISTORY OF: Family History of Osteoporosis: YES MOTHER, GRANDMOTHER(P) Active: YES Postmenopausal woman: AGE 51 Take estrogen and/or progesterone medications: YES How long: ESTRADIAL CREAM FOR 5 YEARS MEDICATIONS: Additional Medications: CALCIUM, VIT D, LETROZOLE, ESTRADIAL CREAM, ZOLOFT, IRON, MULTI VIT, GLUCOSAM INE CHONDROITIN, FISH OIL, VIT C Additional History: BREAST CANCER WITH CHEMO AND RADIATION EXAM MEASUREMENTS: Bone mineral densitometry was performed using the [employer] System. Bone mineral density as measured about the Lumbar spine is: ----- L1-L4(G/cm2): 1.148 T Score Values are as follows: ----- L2: -0.3 ----- L3: 0.5 ----- L4: -0.5 ----- L1-L4: -0.3 Bone mineral density has: Decreased -5.1% since study of: 04/25/2018 Bone mineral density about the R hip (g/cm2): 0.883 Bone mineral density about the L hip (g/cm2): 0.868 T Score values are as follows: -----R Neck: -1.1 -----L Neck: -1.2 -----R Total: -1.0 -----L Total: -1.3 Bone mineral density has: Decreased -7.7% since study of: 04/25/2018 IMPRESSION: Osteopenia NOTE: T-SCORE=SD OF THE YOUNG ADULT MEAN.
== END | disposition home or self-care (01) ==
LOC: RADBDWWP 08:33
PROVIDERS: ATTEND Internal Medicine Hematology & Oncology
DX: M85.80 Other specified disorders of bone density and structure, unspecified site (principal); C50.412 Malignant neoplasm of upper-outer quadrant of left female breast; Z79.890 Hormone replacement therapy
CPT/HCPCS: 77080

== ENCOUNTER → 2020-10-07 | Outpatient (CLI) | payer BC, OTHER ==
--- NOTE | 2020-10-07 12:49 | USB ---
EXAMINATION TYPE: US breast limited LT DATE OF EXAM: 10/07/2020 COMPARISON: Mammogram same date CLINICAL HISTORY: N64 lump. Findings: Targeted left breast ultrasound was performed from 12-3 o'clock and in the retroareolar region and ax illa. In the left breast at 2:00 in the area of scar, there is a 1.7 x 1.1 x 1.4 cm heterogeneous ovoid les ion which is predominantly isoechoic to fat and consistent with area of fat necrosis seen on mammogra m. IMPRESSION: No sonographic evidence for malignancy. Clinical follow-up is recommended for left breast palpable ab normality which most likely corresponds to the area of fat necrosis. BI-RADS 2, benign. Yearly mammogram is recommended.
--- NOTE | 2020-10-10 08:43 | MM ---
Reason for exam: additional evaluation requested from prior study. Last mammogram was performed 2 years and 1 month ago. History: Patient is postmenopausal, has history of breast cancer at age 56, and is nulliparous. Family history of breast cancer in maternal grandmother at age 40 and breast cancer in maternal cousin at age 40. Malignant MG pre op needle loc LT of the left breast, August 27, 2017. Malignant US biopsy breast VAD LT of the left breast, August 16, 2017. Cyst aspiration. Lumpectomy of the left breast. Chemotherapy. Radiation therapy. Took estrogen for 2 years beginning at age 55. Took progesterone for 2 years beginning at age 56. Taking antineoplastic for 2 years 6 months beginning at age 56. Physical Findings: Nurse Summary: 1cm nodule in the left breast at 2 o'clock (nurse TM). MG Diagnostic Mammo w CAD ABBY Bilateral CC and MLO view(s) were taken. Prior study comparison: August 25, 2018, bilateral MG diagnostic mammo w CAD ABBY. August 16, 2017, left breast MG diagnostic mammo LT wo CAD. There are scattered fibroglandular densities. Left biopsy clip, new. There are post operative changes in the left upper outer quadrant and within this area is fat necrosis at the site of palpable. Ultrasound recommended. These results were verbally communicated with the patient and result sheet given to the patient on 10/07/20. ASSESSMENT: Incomplete: need additional imaging evaluation, BI-RAD 0 RECOMMENDATION: Ultrasound of the left breast. (at palpable)
== END | disposition home or self-care (01) ==
LOC: RADMAMWWP 10:54
PROVIDERS: ATTEND Obstetrics & Gynecology
DX: N64.89 Other specified disorders of breast (principal); N63.21 Unspecified lump in the left breast, upper outer quadrant; Z78.0 Asymptomatic menopausal state; Z85.3 Personal history of malignant neoplasm of breast; Z80.3 Family history of malignant neoplasm of breast
CPT/HCPCS: 77066

== ENCOUNTER → 2021-03-03 | Outpatient (CLI) | payer BC, OTHER ==
[2021-03-03 14:57] LABS: Basophils # (A) 0.08 X 10*3/uL (0.00-0.10); Basophils % (A) 1.6 %; Eosinophils # (A) 0.12 X 10*3/uL (0.04-0.35); Eosinophils % (A) 2.4 %; HCT 36.3 % (37.2-46.3); HGB 11.4 g/dL (12.0-15.0); Lymphocytes # (A) 1.76 X 10*3/uL (0.90-5.00); Lymphocytes % (A) 34.6 %; MCH 30.8 pg (27.0-32.0); MCHC 31.4 g/dL (32.0-37.0); MCV 98.1 fL (80.0-97.0); Mean Platelet Volume 11.2 fL (9.5-12.2); Monocytes # (A) 0.42 X 10*3/uL (0.20-1.00); Monocytes % (A) 8.3 %; Neutrophils # (A) 2.69 X 10*3/uL (1.80-7.70); Neutrophils % (A) 52.9 %; Platelet Count 287 X 10*3/uL (140-440); RDW 13.6 % (11.5-14.5); WBC 5.08 X 10*3/uL (4.50-10.00)
[2021-03-03 16:38] LABS: African American GFR (CKD) 88.9 (60.0-200.0); Albumin 4.3 g/dL (3.8-4.9); Albumin/Globulin Ratio 1.78 (1.60-3.17); Anion Gap 10.7 mmol/L (10.00-18.00); BUN/Creat Ratio 12.85 Ratio (12.00-20.00); Blood Urea Nitrogen 10.6 mg/dL (9.0-27.0); Calcium 9.9 mg/dL (8.7-10.3); Carbon Dioxide 26.2 mmol/L (20.0-27.5); Globulin 2.4 g/dL (1.6-3.3); Non-African American GFR(CKD) 76.7 (60.0-200.0); Potassium 4.6 mmol/L (3.5-5.5); T4, Free (Free Thyroxine) 1.12 ng/dL (0.800-1.800); Total Bilirubin 0.3 mg/dL (0.30-1.20); Total Protein 6.7 g/dL (6.2-8.2); Triglycerides 45.5 mg/dL (0.00-149.00)
[2021-03-03 16:58] LABS: Chol/HDL Ratio 1.97 Ratio
== END | disposition home or self-care (01) ==
LOC: LABWHC1 08:51
PROVIDERS: ATTEND Nurse Practitioner Adult Health
DX: Z00.00 Encounter for general adult medical examination without abnormal findings (principal); E07.9 Disorder of thyroid, unspecified; E78.5 Hyperlipidemia, unspecified; R68.2 Dry mouth, unspecified; Z85.3 Personal history of malignant neoplasm of breast
CPT/HCPCS: 36415; 80053; 80061; 83036; 83721; 84439; 84443; 85025

== ENCOUNTER → 2021-10-09 | Outpatient (CLI) | payer BC, OTHER ==
--- NOTE | 2021-10-11 12:34 | MM ---
Reason for Exam: Hx of breast cancer, conservation therapy. Last screening mammogram was performed 12 month(s) ago. Patient History: Menarche at age 10. Patient has no children. Postmenopausal. Breast cancer, left, age 56. Estrogen, starting at age 55 for 2 years. Progesterone, starting at age 56 for 2 years. Cyst Aspiration. Lumpectomy on the Left side. 08/27/2017, Malignant Core Biopsy on the left side. 08/16/2017, Malignant Core Biopsy on the left side. Chemotherapy. Radiation Therapy. Maternal grandmother had breast cancer, age 40. Maternal cousin had breast cancer, age 40. Prior Study Comparison: 07/08/2015 Bilateral Screening Mammogram, [facility]. 07/11/2016 Bilateral Screening Mammogram, [facility]. 07/22/2017 Bilateral Screening Mammogram, [facility]. 07/26/2017 Left Diagnostic Mammogram, [facility]. 08/16/2017 Left Diagnostic Mammogram, [facility]. 08/25/2018 Bilateral Diagnostic Mammogram, [facility]. 10/07/2020 Bilateral Diagnostic Mammogram, [facility]. Tissue Density: The breast tissue is heterogeneously dense. This may lower the sensitivity of mammography. Findings: Postoperative changes left breast. Traumatic oil cysts noted upper outer quadrant. A few dystrophic calcifications seen. No suspicious clusters of calcifications noted. No evidence for mass or distortion right breast. Overall Assessment: Benign, BI-RAD 2 Management: Diagnostic Mammogram of both breasts in 1 year. A clinical breast exam by your physician is recommended on an annual basis and results should be correlated with mammographic findings. This exam should not preclude additional follow-up of suspicious palpable abnormalities. Results were given to the patient verbally at the time of exam. Electronically signed and approved by: Silas Grove M.D. Radiologis
== END | disposition home or self-care (01) ==
LOC: RADMAMWWP 12:51
PROVIDERS: ATTEND Internal Medicine Hematology & Oncology
DX: R92.1 Mammographic calcification found on diagnostic imaging of breast (principal); Z80.3 Family history of malignant neoplasm of breast
CPT/HCPCS: 77062; 77066

== ENCOUNTER → 2022-10-10 | Outpatient (CLI) | payer BC, OTHER ==
--- NOTE | 2022-10-11 08:32 | MM ---
Reason for Exam: Screening (asymptomatic). Last screening mammogram was performed 12 month(s) ago. Patient History: Menarche at age 10. Patient has no children. Postmenopausal. Breast cancer, left, age 56. Currently using Estrogen, beginning at age 55 for 2 years. Progesterone, starting at age 56 for 2 years. Cyst Aspiration. Lumpectomy on the Left side. 08/27/2017, Malignant Core Biopsy on the left side. 08/16/2017, Malignant Core Biopsy on the left side. Chemotherapy. Radiation Therapy. Maternal grandmother had breast cancer, age 40. Maternal cousin had breast cancer, age 40. Prior Study Comparison: 08/25/2018 Bilateral Diagnostic Mammogram, [facility]. 10/07/2020 Bilateral Diagnostic Mammogram, [facility]. 10/09/2021 Bilateral MG 3D diag mammo w/cad ABBY, [facility]. Tissue Density: The breast tissue is heterogeneously dense. This may lower the sensitivity of mammography. Findings: Analyzed By CAD. There is no suspicious group of microcalcifications or new suspicious mass in either breast. Traumatic oil cyst left breast. Overall Assessment: Benign, BI-RAD 2 Management: Screening Mammogram of both breasts in 1 year. . Patient should continue monthly self-breast exams. A clinical breast exam by your physician is recommended on an annual basis. This exam should not preclude additional follow-up of suspicious palpable abnormalities. Note on Delfina scores and lifetime risk: 1. A Delfina score greater than 3% is considered moderate risk. If this is the case, consider specialist referral to assess eligibility for a risk reducing agent. 2. If overall lifetime risk for the development of breast cancer is 20% or higher, the patient may qualify for future screening with alternating mammogram and breast MRI. Electronically signed and approved by: Silas Grove M.D. Radiologis
== END | disposition home or self-care (01) ==
LOC: RADMAMWWP 08:50
PROVIDERS: ATTEND Internal Medicine Hematology & Oncology
DX: Z12.31 Encounter for screening mammogram for malignant neoplasm of breast (principal); Z78.0 Asymptomatic menopausal state; Z80.3 Family history of malignant neoplasm of breast
CPT/HCPCS: 77063; 77067

== ENCOUNTER → 2023-10-15 | Outpatient (CLI) | payer BC, OTHER ==
--- NOTE | 2023-10-17 09:53 | MM ---
Reason for Exam: Screening (asymptomatic). Last screening mammogram was performed 12 month(s) ago. Patient History: Menarche at age 10. Patient has no children. Postmenopausal. Breast cancer, left, age 56. Currently using Estrogen, beginning at age 55 for 2 years. Progesterone, starting at age 56 for 2 years. Cyst Aspiration. Lumpectomy on the Left side. 08/27/2017, Malignant Core Biopsy on the left side. 08/16/2017, Malignant Core Biopsy on the left side. 2018, Radiation Therapy on the left side. 2018, Chemotherapy. Chemotherapy. Radiation Therapy. Maternal grandmother had breast cancer, age 40. Maternal cousin had breast cancer, age 40. Prior Study Comparison: 10/07/2020 Bilateral Diagnostic Mammogram, [facility]. 10/09/2021 Bilateral MG 3D diag mammo w/cad ABBY, [facility]. 10/10/2022 Bilateral MG 3D screening mammo w/cad, [facility]. Tissue Density: The breasts are heterogeneously dense, which may obscure small masses. Findings: Analyzed By CAD. There is no suspicious group of microcalcifications or new suspicious mass in either breast. Overall Assessment: Benign, BI-RAD 2 Management: Screening Mammogram of both breasts in 1 year. . Patient should continue monthly self-breast exams. A clinical breast exam by your physician is recommended on an annual basis. This exam should not preclude additional follow-up of suspicious palpable abnormalities. Note on Delfina scores and lifetime risk: 1. A Delfina score greater than 3% is considered moderate risk. If this is the case, consider specialist referral to assess eligibility for a risk reducing agent. 2. If overall lifetime risk for the development of breast cancer is 20% or higher, the patient may qualify for future screening with alternating mammogram and breast MRI. Electronically signed and approved by: Silas Grove M.D. Radiologis
== END | disposition home or self-care (01) ==
LOC: RADMAMWWP 08:59
PROVIDERS: ATTEND Internal Medicine Hematology & Oncology
DX: Z12.31 Encounter for screening mammogram for malignant neoplasm of breast (principal); Z78.0 Asymptomatic menopausal state; Z80.3 Family history of malignant neoplasm of breast; R92.333 Mammographic heterogeneous density, bilateral breasts
CPT/HCPCS: 77063; 77067

== ENCOUNTER → 2024-10-15 | Outpatient (CLI) | payer BC, OTHER ==
--- NOTE | 2024-10-15 11:16 | MM ---
Reason for Exam: Screening (asymptomatic). Last screening mammogram was performed 12 month(s) ago. Patient History: Menarche at age 10. Patient has no children. Postmenopausal. Breast cancer, left, age 56. Currently using Estrogen, beginning at age 55 for 2 years. Progesterone, starting at age 56 for 2 years. Cyst Aspiration. Lumpectomy on the Left side. 08/27/2017, Malignant Core Biopsy on the left side. 08/16/2017, Malignant Core Biopsy on the left side. 2018, Radiation Therapy on the left side. 2018, Chemotherapy. Chemotherapy. Radiation Therapy. Maternal grandmother had breast cancer, age 40. Maternal cousin had breast cancer, age 40. Prior Study Comparison: 10/09/2021 Bilateral MG 3D diag mammo w/cad ABBY, [facility]. 10/10/2022 Bilateral MG 3D screening mammo w/cad, [facility]. 10/15/2023 Bilateral MG 3D screening mammo w/cad, [facility]. Tissue Density: The breasts are heterogeneously dense, which may obscure small masses. Findings: Analyzed By CAD. Left breast surgical clips. Right breast: There is no suspicious group of microcalcifications or new suspicious mass. Left breast: There is no suspicious group of microcalcifications or new suspicious mass. Overall Assessment: Benign, BI-RAD 2 Management: Screening Mammogram of both breasts in [address] [facility] will attempt to contact patient to return for supplemental views and ultrasound if indicated. Patient should continue monthly self-breast exams. A clinical breast exam by your physician is recommended on an annual basis. This exam should not preclude additional follow-up of suspicious palpable abnormalities. Note on Delfina scores and lifetime risk: 1. A Delfina score greater than 3% is considered moderate risk. If this is the case, consider specialist referral to assess eligibility for a risk reducing agent. 2. If overall lifetime risk for the development of breast cancer is 20% or higher, the patient may qualify for future screening with alternating mammogram and breast MRI. [facility], , 10/15/2024 11:13 AM. Electronically signed and approved by: Owen Reed DO
== END | disposition home or self-care (01) ==
LOC: RADMAMWWP 10:12
PROVIDERS: ATTEND Internal Medicine Hematology & Oncology
DX: Z12.31 Encounter for screening mammogram for malignant neoplasm of breast (principal); R92.333 Mammographic heterogeneous density, bilateral breasts; C50.919 Malignant neoplasm of unspecified site of unspecified female breast; C50.412 Malignant neoplasm of upper-outer quadrant of left female breast; M85.9 Disorder of bone density and structure, unspecified; Z78.0 Asymptomatic menopausal state; Z85.3 Personal history of malignant neoplasm of breast; Z80.3 Family history of malignant neoplasm of breast
CPT/HCPCS: 77063; 77067